=== PATIENT | female | born 1980 | race Caucasian/White ===

== ENCOUNTER 2016-05-19 05:17 | Day surgery (SDC) | payer OTHER ==
[2016-04-11 09:37] VITALS: BMI 43.0
--- NOTE | 2016-04-11 10:35 | PAT Medication Instructions ---
Service Date Apr 11, 2016. Current Home Medication List Albuterol Hfa (Ventolin Hfa), 2 PUFFS INH Q4H PRN for RN Ibuprofen Tab (Advil), 400-800 MG PO PRN PRN for Pain [Cough Med W Codeine], 1 DOSE PO Q4H PRN for instrument repairer Instructions For Your Scheduled Surgery Ibuprofen Tab (Advil), 400-800 MG PO PRN PRN for Pain (takes only occasionally) - Hold the following medications the morning of surgery: Cough Med W Codeine 1 DOSE PO Q4H PRN for RN - Take the following medications the morning of surgery with a sip of water: Albuterol Hfa (Ventolin Hfa), 2 PUFFS INH Q4H PRN for RN (bring with you to hospital on day of surgery) - Take the following medications as scheduled the night before surgery: Albuterol Hfa (Ventolin Hfa), 2 PUFFS INH Q4H PRN for RN (if needed) If you have any questions please call us at [phone] or [phone] ( [place]) or [phone]
[2016-04-11 10:50] LABS: BASO % 0.3 %; BASO ABS # 0.02 K/uL (0-0.2); COMPLETE YES; HEMATOCRIT 40.6 % (37-47); IG% 0.3 %; LYMPH % 27.8 %; LYMPH ABS # 2.19 K/uL (1.2-3.4); MEAN CELL VOLUME 86.2 fL (80-100); MEAN CORPUSCULAR HEMOGLOBIN 29.5 pg (25-34); MEAN CORPUSCULAR HGB CONC 34.2 g/dl (32-36); MEAN PLATELET VOLUME 11.1 fL (7.4-10.4); MONO % 7.2 %; NEUT % 61.4 %; PLATELET COUNT 203 K/uL (130-400); RED BLOOD COUNT 4.71 M/uL (4.2-5.4); WHITE BLOOD COUNT 7.89 K/uL (4.8-10.8)
--- NOTE | 2016-04-11 11:06 | DIAGNOSTIC IMAGING REPORT ---
CHEST PREADMISSION(PA/LAT) CLINICAL HISTORY: Preoperative chest COMPARISON STUDY: No previous studies for comparison. FINDINGS: The cardiac and mediastinal contours are normal. There is no evidence of focal pulmonary consolidation. There is no evidence of failure. No pleural effusions are visualized.[ IMPRESSION: No active disease in the chest. Electronically signed by: Richi Flores M.D. 04/11/2016 11:05 AM
[2016-04-11 11:22] LABS: BUN/CREATININE RATIO 14.4 (10-20); CREATININE 0.7 mg/dl (0.60-1.20)
[2016-04-11 11:26] LABS: CALCIUM 9.3 mg/dl (8.5-10.1)
[~2016-05-19] VITALS: Ht 157.5 cm; Wt 107.2 kg
[~2016-05-19 05:17] MED LIST: CEFAZOLIN 3000 MG/65 ML D5W 50 ML IV SCH; IBUP-103 PO; LACTATED RINGER'S 1000ML 1,000 ML IV SCH; VNTHFA/IN INH; [UNRECOGNIZED DRUG - OTHER] PO
[2016-05-19 05:36] VITALS: BP 120/76; PULSE 85; TEMP 37.1; O2SAT 96; Ht 157.5 cm; Wt 107.2 kg
[2016-05-19] MEDS ORDERED: LACTATED RINGER'S 1000ML 1,000 ML IV SCH (06:00)
[2016-05-19] MEDS ORDERED: CEFAZOLIN 3000 MG/65 ML D5W 50 ML IV SCH (06:00)
[2016-05-19] MEDS ORDERED: FENTANYL CITRATE INJ 50 MCG/1 ML 2 ML VIAL ONE ×3 (06:55→08:51)
[2016-05-19] MEDS ORDERED: LIDOCAINE HCL 2% 2 ML VIAL (20MG/ML) ONE (06:55)
[2016-05-19] MEDS ORDERED: MIDAZOLAM HCL 1 MG/ML 2ML VIAL ONE (06:55)
[2016-05-19] MEDS ORDERED: PROPOFOL IV EMULSION 10 MG/ML 20 ML VIAL IV ONE (06:55)
[2016-05-19] MEDS ORDERED: ROCURONIUM BROMIDE 10 MG/ML 5 ML VIAL ONE (06:55)
--- NOTE | 2016-05-19 07:18 | History and Physical ---
History & Physical Date May 19, 2016. Chief Complaint Request for permanent sterilization History of Present Illness The patient is a 35 year old female who presents for scheduled laparoscopic BTL. Discussed the risks, benefits and alternatives. Informed consent signed. Past Medical/Surgical History Denies any medical history Additional History Hepatic Disease: No Endocrine Disorder: No Kidney Disease: No Hypertension: No Heart Disease: No Bleeding Tendencies: No Infectious Diseases: No Allergies Coded Allergies: Nickel (Unverified Allergy, Unknown, RASH, 05/19/16) Home Medications Scheduled PRN Albuterol Hfa (Ventolin Hfa), 2 PUFFS INH Q4H PRN for RN Ibuprofen Tab (Advil), 400-800 MG PO PRN PRN for Pain [Cough Med W Codeine], 1 DOSE PO Q4H PRN for RN Physical Examination Skin: warm/dry, no rash Respiratory/Chest: lungs clear, normal breath sounds, no respiratory distress Cardiovascular: regular rate, rhythm, no edema, no murmur Abdomen / GI: normal bowel sounds, non tender Neurologic/Psych: no motor/sensory deficits, alert, normal reflexes, oriented x 3 Diagnosis Requesting permanent sterilization Plan of Treatment Laparoscopic bilateral tubal ligation
--- NOTE | 2016-05-19 07:33 | HISTORY & PHYSICAL EXAMINATION ---
DATE OF ADMISSION: 05/19/2016 CHIEF COMPLAINT: Requesting permanent sterilization. HISTORY OF PRESENT ILLNESS: The patient is a 35-year-old 2, para 2 female who presents for a scheduled laparoscopic bilateral tubal ligation and removal of her IUD. She was scheduled last month but suffered from pneumonia and therefore her surgery had to be rescheduled. She has been cleared by her primary care physician. Both her and her have agreed that they have completed their family and want something more permanent. We did discuss her options between laparoscopic versus Essure bilateral tubal ligation along with the risks, benefits, and failure rates. She has decided that she would like to proceed with a scheduled laparoscopic bilateral tubal ligation. Informed consent has been signed. PAST MEDICAL HISTORY: The patient denies any previous medical history. PAST SURGICAL HISTORY: History of no surgeries. SOCIAL HISTORY: She denies tobacco, alcohol or drug use. MEDICATIONS: Albuterol inhaler as needed. ALLERGIES: No known drug allergies. REVIEW OF SYSTEMS: CONSTITUTIONAL: Denies fevers, chills, sweats or weight loss. CARDIOVASCULAR: Negative for chest pain, dyspnea, syncope or palpitations. PULMONARY: Negative for cough, wheezing, shortness of breath. ABDOMEN: Denies pain, heartburn, bleeding, change in bowel habits, nausea, vomiting. GENITOURINARY: She denies dysuria, pelvic pain, irregular menses or vaginal discharge. SKIN: No rashes or any lesions. PHYSICAL EXAMINATION: VITAL SIGNS: Blood pressure is 120/76, heart rate of 85, respiration rate of 20, temperature 37.1 Celsius, pulse ox 96% on room air. GENERAL: The patient is awake, alert, oriented x3. She is in no acute distress. LUNGS: Clear to auscultation bilaterally. HEART: Regular rate and rhythm. ABDOMEN: Soft, nontender. Bowel sounds present x4. EXTREMITIES: No clubbing, cyanosis or calf tenderness. PLAN: Requesting permanent sterilization, proceed with her scheduled laparoscopic bilateral tubal ligation and removal of her IUD. MTDD
[2016-05-19] MEDS ORDERED: ONDANSETRON INJ 2 MG/ML 2 ML VIAL ONE (07:50)
[2016-05-19] MEDS ORDERED: DEXAMETHASONE SOD INJ 4 MG/ML VIAL ONE (07:50)
[2016-05-19] MEDS ORDERED: HYDROmorphone INJ 1 MG/ML SYR IV PRN ×2 (08:30→10:00)
[2016-05-19] MEDS ORDERED: FENTANYL CITRATE INJ 50 MCG/1 ML 2 ML VIAL IV PRN ×2 (08:30→10:00)
[2016-05-19] MEDS ORDERED: LABETALOL HCL IV 5 MG/ML 20ML IV PRN ×2 (08:30→10:00)
[2016-05-19] MEDS ORDERED: EpHEDrine SULFATE INJ 50 MG/ML AMP IV PRN ×2 (08:30→10:00)
[2016-05-19] MEDS ORDERED: MEPERIDINE HCL 25 MG/ML CARP IV PRN ×2 (08:30→10:00)
[2016-05-19] MEDS ORDERED: ONDANSETRON INJ 2 MG/ML 2 ML VIAL IV PRN ×3 (08:30→10:00)
[2016-05-19] MEDS ORDERED: ATROPINE SULFATE 0.1 MG/ML 5ML SYR IV PRN ×2 (08:30→10:00)
[2016-05-19] MEDS ORDERED: BUPIVACAINE 0.5 % 5 MG/1 ML MPF 30ML VIAL INJ ONE (08:30)
[2016-05-19] MEDS ORDERED: SODIUM CHLORIDE 0.9% 1000ML 1,000 ML IV SCH (08:38)
[2016-05-19] MEDS ORDERED: IBUP600T44 PO (08:39)
[2016-05-19] MEDS ORDERED: OXYC-57 PO (08:39)
--- NOTE | 2016-05-19 08:41 | Discharge Instructions ---
Discharge Instructions Visit Reason for Visit: Requesting Permanent Sterilization; IUD Removal Discharge Discharge Diagnosis / Problem: Laparoscopic bilateral tubal ligation, removal of IUD Discharge Goals Goal(s): Decrease discomfort Activity Recommendations Activity Limitations: per Instructions/Follow-up section Anesthesia . Post Anesthesia Instructions: If you have had General Anesthesia or IV Sedation: * Do not drive today. * Resume driving when surgeon permits. * Do not make important decisions or sign legal documents today. * Call surgeon for: 1. Temperature elevations greater than 101 degrees F. 2. Uncontrollable pain. 3. Excessive bleeding. 4. Persistent nausea and vomiting. 5. Medication intolerance (nausea, vomiting or rash). * For nausea and vomiting use only clear liquids such as: tea, soda, bouillon until nausea subsides, then gradually increase diet as tolerated. * If you have any concerns or questions, call your surgeon's office. If physician is unavailable and it is an emergency, call 911 or go to the nearest emergency room. . Instructions / Follow-Up Instructions / Follow-Up SPECIAL CARE INSTRUCTIONS: * Check temperature twice daily for one week. Report any elevation over 100.4 degrees Fahrenheit (38.0 degrees Celsius). * Call office in the next few days for return appointment. * You may experience some vaginal spotting and/or bleeding, this is normal for one or two weeks and should not alarm you. * Post-operative discomfort may consist of a sore throat, a "bloated" feeling and pain in the shoulders. These are normal symptoms which usually only last for two or three days. FOLLOW UP VISIT: Keep any scheduled doctor appointments. Diet Recommendations Recommended Home Diet: no limitations, resume previous diet Procedures Procedures Performed: Bilateral Laparoscopic Tubal Sterilization; Removal of IUD Pending Studies Studies pending at discharge: no Medical Emergencies . Who to Call and When: Medical Emergencies: If at any time you feel your situation is an emergency, please call 911 immediately. . Non-Emergent Contact Non-Emergency issues call your: Primary Care Provider, Ged Preparation Teacher . . "Provider Documentation" section prepared by Jose Chowdary. [place] Drug Monitoring Program Search Results: patient reviewed within database, no issues identified
--- NOTE | 2016-05-19 08:43 | [facility] Post Operative Brief Note ---
Immediate Operative Summary Operative Date May 19, 2016. Pre-Operative Diagnosis Patient request permanent sterilization Post-Operative Diagnosis Patient requesting permanent sterilization Procedure(s) Performed Bilateral Laparoscopic Tubal Sterilization; Removal of IUD Surgeon Dr. Jose Chowdary Bender Helper Surgeon(s) None Estimated Blood Loss 5ML Findings IUD removed without difficulty. Upon laparoscopic exam uterus was at midline, freely mobile. Bilateral tubes and ovaries were normal. Bilateral fallopian tubes were followed out to their fimbriated ends, grasped at midpoint and fulgurated with the kleppingers at multiple points along their course. No other intraabdominal or pelvic pathology noted. Patient tolerated the procedure well and was sent to recovery with stable vital signs. Fluids (cc crystalloids) 1000 Specimens None Drains None Anesthesia General Complication(s) None Disposition Recovery Room / PACU
[2016-05-19] MEDS ORDERED: OXYCODONE/ACETAMINOPHEN 5-325 TAB PO PRN ×2 (08:45)
[2016-05-19] MEDS ORDERED: IBUPROFEN 600 MG TAB PO PRN (08:45)
[2016-05-19] MEDS ORDERED: KETOROLAC TROMETHAMINE 30 MG/ML VIAL IV. PRN (08:45)
--- NOTE | 2016-05-19 09:03 | OPERATIVE REPORT ---
DATE OF OPERATION: 05/19/2016 PREOPERATIVE DIAGNOSIS: Requesting permanent sterilization. POSTOPERATIVE DIAGNOSES: Same. OPERATIVE PROCEDURE: Laparoscopic bilateral tubal ligation, removal of IUD. SURGEON: Dr. Chowdary. SEMICONDUCTOR MANUFACTURING TECHNICIAN: None. ANESTHESIA: General. ESTIMATED BLOOD LOSS: 5 mL. IV FLUIDS: 1000 mL crystalloids. URINE OUTPUT: 200 mL clear yellow urine. SPECIMENS: None. DRAINS: None. COMPLICATIONS: None. DISPOSITION: Recovery room. OPERATIVE FINDINGS: The patient's IUD was removed without difficulty. Upon laparoscopic exam, uterus was at midline and freely mobile. Bilateral tubes and ovaries were normal. Bilateral fallopian tubes were followed out to their fimbriated ends, grasped at midpoint and fulgurated with Kleppingers at multiple points along their course. There was no other intra-abdominal or pelvic pathology noted. The patient tolerated the procedure well and was sent to recovery with stable vital signs. OPERATIVE PROCEDURE IN DETAIL: The patient was taken to the operating room where general anesthesia was administered. Once anesthesia was found to be adequate, the patient was placed in the dorsal lithotomy position and was prepped and draped in a manner appropriate for the procedure. The bladder was then drained of clear yellow urine. A weighted speculum was placed into the vagina and the anterior lip of the cervix was grasped with an Allis clamp. The IUD was grasped at the strings and removed without difficulty. A [employer] uterine manipulator was then placed within the uterus in an anteverted fashion. The patient was then ready for the laparoscopic portion of the procedure. Attention was directed towards the umbilicus where 0.5% Marcaine was injected below the umbilicus. An 11 mm skin incision was made subumbilically in a horizontal fashion. A Veress needle was then placed within the abdomen. Normal saline was injected with no fecal content aspirated. A pneumoperitoneum was then created. The Veress needle was then removed and an 11 mm trocar was then placed within the abdomen under direct laparoscopic visualization. The pneumoperitoneum was maintained. A second 5 mm skin incision was made 2 fingerbreadths above the pubic symphysis in a horizontal fashion at midline and a 5 mm trocar was placed within the abdomen under direct laparoscopic visualization. The patient was then placed in Trendelenburg position. The bowel was displaced superiorly away from the pelvis. A thorough examination of the abdomen and pelvis was then performed. Attention was directed towards the right fallopian tube which was followed out to its fimbriated end, grasped in the midpoint with the Kleppingers and fulgurated at multiple points throughout its course. Attention was then directed towards the left fallopian tube which was likewise followed out to its fimbriated end, grasped at the midpoint with the Kleppingers and fulgurated at multiple points throughout its course. At this point, the procedure was found to be complete. All instruments removed from the abdomen and as much CO2 gas was allowed to percolate through open cannulas. The cannulas were then removed. The fascia at the umbilical incision was grasped with Hung clamps and the fascial incision was reapproximated with 0 Vicryl suture in a [id number] interrupted fashion. Skin of both incisions were then closed with 4-0 Monocryl in a subcuticular fashion. Excellent hemostasis was noted. The Hulka uterine manipulator was then removed from the vagina. All sponge and instrument counts were found to be correct x2. The patient tolerated the surgery well and was sent to recovery with stable vital signs. I attest to the content of the Intraoperative Record and any orders documented therein. Any exceptions are noted below. BERYL
[2016-05-19 09:30] VITALS: BP 116/67; PULSE 65; TEMP 36.8; O2SAT 95
--- NOTE | 2016-05-19 09:57 | Anesthesiology Progress Note ---
Anesthesia Post Op Note Date & Time May 19, 2016 at 09:57 Vital Signs Pain Intensity: 3 Vital Signs Past 12 Hours Date Time Temp Pulse Resp B/P Pulse Ox O2 Delivery O2 Flow Rate FiO2 05/19/16 09:30 36.8 65 16 116/67 95 Room Air 0 05/19/16 09:20 36.5 62 14 105/75 95 Room Air 05/19/16 09:10 48 12 120/74 100 Room Air 05/19/16 09:00 57 15 128/91 100 Mask 10 05/19/16 08:50 53 17 141/87 100 Mask 10 05/19/16 08:44 36.0 58 22 154/97 100 Mask 10 05/19/16 05:36 37.1 85 20 120/76 96 Room Air Notes Mental Status: alert / awake / arousable, participated in evaluation Pt Amnestic to Procedure: Yes Nausea / Vomiting: adequately controlled Pain: adequately controlled Airway Patency, RR, SpO2: stable & adequate BP & HR: stable & adequate Hydration State: stable & adequate Anesthetic Complications: no major complications apparent
[2016-05-19 10:00] VITALS: BP 105/68; PULSE 59; TEMP 36.8; O2SAT 96
[2016-05-19] MEDS ORDERED: METOPROLOL TARTRATE 1 MG/ML VIAL ONE (10:07)
[2016-05-19] MEDS ORDERED: LABETALOL HCL IV 5 MG/ML 20ML ONE (10:07)
[2016-05-19] MEDS ORDERED: NEOSTIGMINE METHYLSULFATE 5 MG/5 ML SYR ONE (10:12)
[2016-05-19] MEDS ORDERED: GLYCOPYRROLATE INJ 0.2 MG/ML VIAL ONE (10:12)
[2016-05-19] MEDS: OXYCODONE/ACETAMINOPHEN 5-325 TAB ONE ×2 (10:21→11:05)
[2016-05-19] MEDS ORDERED: OXYCODONE/ACETAMINOPHEN 5-325 TAB PO ONE (10:30)
[2016-05-19 10:37] VITALS: BP 105/64; PULSE 66; TEMP 36.8; O2SAT 96
[2016-05-19 11:07] VITALS: BP 110/65; PULSE 70; TEMP 36.6; O2SAT 98
== END 2016-05-19 11:40 | disposition home or self-care (01) ==
LOC: C.ACU 05:17
PROVIDERS: ATTEND Obstetrics & Gynecology
DX: Z30.2 Encounter for sterilization (principal); Z68.41 Body mass index [BMI] 40.0-44.9, adult; E66.01 Morbid (severe) obesity due to excess calories